=== PATIENT | female | born 1970 | race Caucasian/White ===

== ENCOUNTER 2019-05-17 02:42 | Emergency (ER) | payer MEDICAID ==
[~2019-05-17] VITALS: Ht 152.4 cm; Wt 74.8 kg
[2019-05-17 02:45] VITALS: BP 140/82
--- NOTE | 2019-05-17 02:48 | NUR ---
TO LOBBY A/W BED AMBULATORY
--- NOTE | 2019-05-17 03:35 | NUR ---
PATIENT CALLED TO PUT ON A BED, NO RESPONSE PATIENT LEFT WITHOUT BEING SEEN BY DR. ULLOA. NO FURTHER CARE PROVIDED FOR PATIENT.
--- NOTE | 2019-05-17 03:40 | NUR ---
CALLED FOR THE SECOND TIME NO RESPONSE
--- NOTE | 2019-05-17 03:45 | NUR ---
CALLED FOR THE THIRD TIME NO RESPONSE
== END 2019-05-17 03:35 | disposition left against medical advice (07) ==
LOC: MED 02:42
DX: R06.00 Dyspnea, unspecified (principal); Z53.21 Procedure and treatment not carried out due to patient leaving prior to being seen by health care provider

== ENCOUNTER 2019-07-28 15:29 | Emergency (ER) | payer MEDICAID ==
[~2019-07-28] VITALS: Ht 152.4 cm; Wt 77.1 kg
[2019-07-28 15:35] VITALS: BP 145/63
--- NOTE | 2019-07-28 15:39 | NUR ---
PT AMBULATED TO RESTROOM TO PROVIDE URINE SAMPLE
[2019-07-28] MEDS ORDERED: KETOROLAC 30 MG/ML VIAL IVP ONE (15:50)
[2019-07-28] MEDS ORDERED: NACL 0.9% 1,000 ML IV ONE (15:50)
--- NOTE | 2019-07-28 15:50 | NUR ---
PATIENT PRESENTS TO ED WITH LOWER BACK PAIN AND BURNING UPON URINATION X6 DAYS . PATIENT STATES PAIN OF 8/10 AT THIS TIME; VSS; PATIENT POSITIONED FOR COMFORT; HOB ELEVATED; BEDRAILS UP X2; BED DOWN. ER MD MADE AWARE OF PT STATUS.
--- NOTE | 2019-07-28 16:28 | NUR ---
Patient taken to CT sacn via wheelchair by tech.
[2019-07-28 16:31] LABS: BASOPHILS # (AUTO) 0.1 K/uL (0.00-0.22); BASOPHILS % (AUTO) 0.8 % (0.0-2.0); EOSINOPHILS # (AUTO) 0.4 K/uL (0-0.4); EOSINOPHILS % (AUTO) 5.5 % (0.0-4.0); HEMATOCRIT 43.1 % (36-48); HEMOGLOBIN 14.3 g/dL (12.0-16.0); LYMPHOCYTES # (AUTO) 1.4 K/uL (2.5-16.5); LYMPHOCYTES % (AUTO) 17.4 % (20.5-51.1); MEAN CORPUSCULAR HEMOGLOBIN 30 pg (27-31); MEAN CORPUSCULAR HGB CONC 33 g/dL (33-37); MEAN CORPUSCULAR VOLUME 90.8 fL (80-94); MONOCYTES # (AUTO) 0.5 K/uL (0.8-1.0); MONOCYTES % (AUTO) 6.3 % (1.7-9.3); NEUTROPHILS # (AUTO) 5.7 K/uL (1.8-7.7); PLATELET COUNT (AUTO) 320 K/uL (140-450); RED BLOOD CELL COUNT(AUTO) 4.75 MIL/uL (4.20-5.40); RED CELL DISTRIBUTION WIDTH 13.8 % (11.6-13.7); WHITE BLOOD COUNT (AUTO) 8.1 K/uL (4.8-10.8)
--- NOTE | 2019-07-28 16:42 | NUR ---
Patient returned from CT scan. RN re-evaluating patient at bedside.
[2019-07-28 16:44] LABS: ANION GAP 14.1 (8-16); CARBON DIOXIDE 24.8 mmol/L (21-32); CREATININE 0.8 mg/dL (0.6-1.3); POTASSIUM 3.9 mmol/L (3.5-5.1)
[2019-07-28 16:51] LABS: ALBUMIN 4.1 g/dL (3.4-5.0); TOTAL BILIRUBIN 0.2 mg/dL (0.0-1.0)
--- NOTE | 2019-07-28 17:00 | NUR ---
PT IS RESTING IN BED, NO S/S OF DISTRESS, VSS, DENIES PAIN AT THIS TIME.
[2019-07-28 17:18] LABS: APPEARANCE,URINE CLEAR (CLEAR); BILIRUBIN,URINE NEGATIVE (NEGATIVE); BLOOD, URINE 3+ (NEGATIVE); COLOR,URINE YELLOW (YELLOW); LEUKOCYTE ESTERASE ,URINE NEGATIVE (NEGATIVE); NITRITE, URINE NEGATIVE (NEGATIVE); PH,URINE 5.5 (5.0-9.0); UGLUCOSE NEGATIVE (NEGATIVE)
[2019-07-28 17:32] LABS: RBC,URINE 11-20 (MOD) /HPF (0-5); WBC,URINE 0-5 /HPF (0-5)
[2019-07-28 17:45] VITALS: BP 138/63
--- NOTE | 2019-07-28 17:45 | NUR ---
Patient discharged with v/s stable. Written and verbal after care instructions given and explained. Rx of NORCO, IBUPROFEN given. Patient educated on indication of medication including possible reaction and side effects. All questions addressed prior to discharge. ID band removed. IV SITE REMOVED,Patient advised to follow up with PMD.
== END 2019-07-28 17:45 | disposition home or self-care (01) ==
LOC: MED 15:29
DX: N13.9 Obstructive and reflux uropathy, unspecified (principal); N20.2 Calculus of kidney with calculus of ureter; K57.30 Diverticulosis of large intestine without perforation or abscess without bleeding; Z98.890 Other specified postprocedural states
CPT/HCPCS: 36415; 74176; 80053; 81001; 81025; 85025; 96374; 99284; J1885; J7030

== ENCOUNTER 2019-10-29 15:55 | Emergency (ER) | payer MEDICAID ==
[~2019-10-29] VITALS: Ht 152.4 cm; Wt 76.2 kg
[2019-10-29 16:06] VITALS: BP 125/72
--- NOTE | 2019-10-29 16:33 | NUR ---
49 Y/O F C/O COUGH, CONGESTION, RUNY NOSE, OLIVIA 6/10 X 6 WEEKS. PT TOOK OVER THE COUNTER MEDICATION AT HOME HAS NOT HELPED. PT STATES SX ARE GETTING WORSE, NOT BETTER. PT LUNG SOUNDS CLEAR THROUGHOUT, COUGH IS PRODUCTIVE, OXYGEN LEVEL 100% ROOM AIR. PT POSITIONED FOR COMFORT. NKA PMH: DENIES
--- NOTE | 2019-10-29 17:11 | NUR ---
DR PHIPPS AT BEDSIDE EXAMINING PATIENT.
--- NOTE | 2019-10-29 17:11 | NUR ---
Dr. Whittington is evaluating the patient at bedside.
[2019-10-29 17:12] VITALS: BP 125/72
--- NOTE | 2019-10-29 17:12 | NUR ---
Patient discharged with v/s stable. Written and verbal after care instructions given and explained. Patient alert, oriented and verbalized understanding of instructions. Ambulatory with steady gait. All questions addressed prior to discharge. ID band removed. Patient advised to follow up with PMD. Rx of AUGMENTIN, TESSALON given. Patient educated on indication of medication including possible reaction and side effects. Opportunity to ask questions provided and answered.
== END 2019-10-29 17:12 | disposition home or self-care (01) ==
LOC: MED 15:55
DX: J20.9 Acute bronchitis, unspecified (principal)
CPT/HCPCS: 99283